=== PATIENT | female | born 1950 | race Caucasian/White ===

== ENCOUNTER 2017-11-28 01:10 | Emergency (ER) | payer OTHER, MEDICAID ==
[2017-11-28 01:16] VITALS: BMI 39.6
--- NOTE | 2017-11-28 01:47 | DR.GENAD ---
HPI - PCP Primary Care Physician: KEVIN - HPI Comment HPI Comment: NO FEVER. NO DYSURIA. - Complaint/Symptoms Chief Complaint Doctors Comments: RIGHT FLANK PAIN TIMES SEVERAL HOURS. COUGHING DUE TO COPD AND MAY HAVE CAUSE HER MUSCLES TO HURT IN RIGHT FLANK AREA. Chief Complaint:: "I HAVE BEEN COUGHING WITH THIS COPD AND I THINK I HAVE PULLED SOMETHING IN MY SIDE POINTING TO THE RIGHT MID SIDE OF BACK. O/S 2 HRS" - Nurses notes reviewed Nurses Notes Review: Yes - Source History Provided: Patient - Mode of Arrival Mode of Arrival: Ambulatory - Timing Onset of Chief Complaint: 11/27/17 Came on: Suddenly - Duration Duration: Constant Duration: Hours - Severity Severity: Moderate PMH - PMH Past Medical History: Yes Past Medical History: COPD, Depression, Dyslipidemia, GERD, Hypertension Past Medical History Comment: HOME OXYGEN Past Surgical History: Yes Surgical History: Appendectomy, Cholecystectomy, Hysterectomy - Family History History of Family Medical Conditions: Yes Family Medical History: Diabetes Mellitus, Cancer, Coronary Artery Disease, Hypertension - Social History Does patient currently use any type of tobacco product: No Have you used tobacco products in the last 12 months: No Type of Tobacco Use: None Alcohol Use: None Do you use any recreational Drugs:: No Lives With: Spouse Lives Where: Home - infectious screening Have you traveled outside the country in the last 6 months?: No Isolation: Standard ROS - Review of Systems Constitutional: negative: Chills, Diaphoresis, Fever Eyes: No Symptoms Reported ENTM: negative: Ear Pain Respiratoy: Non-Productive Cough, Short of Breath, Wheezing, Hemoptysis Cardiovascular: Edema Gastrointestinal/Abdominal: Nausea. negative: Abdominal Pain, Constipation, Diarrhea, Vomiting Genitourinary: Other (USES ). negative: Dysuria, Hematuria Neurological: No Symptoms Reported Musculoskeletal: Back Pain, Back, Other (RIGHT FLANK PAIN.) Integumentary: Change in Color Hematologic/Lymphatic: Easy Bleeding, Easy Bruising Endocrine: No Symptoms Reported All Other Systems: Reviewed and Negative PE - Vital Signs Vitals: Temperature 98.8 F Pulse Rate [Apical] 93 Pulse Rate 103 Respiratory Rate 24 Blood Pressure [Left Arm] 190/88 Blood Pressure 200/109 O2 Sat by Pulse Oximetry 93 - General Limitations: No Limitations General Appearance: Alert - Head Head Exam: Normal Inspection - Eyes Eye exam: Normal Appearance - ENT ENT Exam: Normal External Ear Exam External Ear Exam: Normal External Inspection TM/Canal Exam: Bilateral Normal Nose Exam: Normal Nose Exam Mouth Exam: Normal Inspection Throat Exam: Normal Inspection - Neck Neck Exam: Trachea Midline - Chest Chest Inspection: Symmetric Chest Wall Rise - Respiratory Respiratory Exam: Normal Lung Sounds Bilat Respiratory Exam: Bilateral Wheezing, Bilateral Rhonchi, Lower Wheezing, Lower Rhonchi - Cardiovascular Cardiovascular Exam: Regular Rate, Normal Rhythm, Normal Heart Sounds - Abdominal Exam Abdominal Exam: Normal Bowel Sounds, Soft. negative: Tenderness - Extremities Extremities Exam: Edema - Back Back Exam: (R) CVA Tenderness, Muscle Spasm, Paraspinal Tenderness - Neurologic Neurological Exam: Alert, Oriented X3 - Psychiatric Psychiatric Exam: Normal Affect, Normal Mood (PATIENT IN PAIN.) - Skin Skin Exam: Normal Color MDM - Additional Information Additional Information Obtained From: Family - Differential Diagnosis Differential Diagnosis: LEFT FLANK PAIN, UTI, KIDNEY STONE,MUSCULOSKELETAL PAIN. Course - Treatment Treatment: SEE ORDERS. PO POTASSIUM AND FLAGYL AND IM TORADOL AND NORFLEX IN ED. PAIN IMPROVING. - Education/Counseling Education/Counseling: Patient, Family, Education Educated On: Diagnosis, Needs for Follow Up ROR - Labs Reviewed Laboratory Results Reviewed?: Yes Result Diagrams: 11/28/17 01:54 11/28/17 01:54 Laboratory: WBC 8.8 X10^3/uL (3.6-10.0) 11/28/17 01:54 RBC 4.07 X10^6/uL (3.5-5.4) 11/28/17 01:54 Hgb 9.0 g/dL (12.0-16.0) L 11/28/17 01:54 Hct 28.7 % (36.0-47.0) L 11/28/17 01:54 MCV 70.5 fL (80.0-100.0) L 11/28/17 01:54 MCH 22.1 pg (27.0-34.0) L 11/28/17 01:54 MCHC 31.4 g/dL (33.0-35.0) L 11/28/17 01:54 RDW 16.0 % (11.6-16.5) 11/28/17 01:54 Plt Count 346 X10^3/uL (150.0-450.0) 11/28/17 01:54 Plt Count Comment Adequate (ADEQUATE) 11/28/17 01:54 MPV 7.5 fL (7.4-11.0) 11/28/17 01:54 Neut % (Auto) 71.7 % (42.0-75.0) 11/28/17 01:54 Lymph % (Auto) 17.7 % (21.0-51.0) L 11/28/17 01:54 [place] % (Auto) 7.6 % (0.0-13.0) 11/28/17 01:54 Eos % (Auto) 1.7 % (0.9-2.9) 11/28/17 01:54 Baso % (Auto) 1.3 % (0.2-1.0) H 11/28/17 01:54 Neut # (Auto) 6.3 x10^3/uL (2.2-4.8) H 11/28/17 01:54 Lymph # (Auto) 1.6 X10^3/uL (1.3-2.9) 11/28/17 01:54 [place] # (Auto) 0.7 x10^3/uL (0.3-0.8) 11/28/17 01:54 Eos # (Auto) 0.2 x10^3/uL (0.0-0.2) 11/28/17 01:54 Baso # (Auto) 0.1 X10^3/uL (0.0-0.1) 11/28/17 01:54 Absolute Nucleated RBC 0.2 /100WBC 11/28/17 01:54 Plt Morphology Comment Normal (NORMAL) 11/28/17 01:54 RBC Morphology Abnormal (NORMAL) A 11/28/17 01:54 Hypochromasia 1+ A 11/28/17 01:54 Sodium 139 mmol/L (136-145) 11/28/17 01:54 Corrected Sodium TNP 11/28/17 01:54 Potassium 3.1 mmol/L (3.5-5.1) L 11/28/17 01:54 Chloride 98 mmol/L (98-107) 11/28/17 01:54 Carbon Dioxide 36.8 mmol/L (21-32) H 11/28/17 01:54 BUN 20 mg/dL (7-18) H 11/28/17 01:54 Creatinine 0.85 mg/dL (0.55-1.02) 11/28/17 01:54 Est GFR (MDRD) Af Amer > 60 (>60) 11/28/17 01:54 Est GFR (MDRD) Non-Af > 60 (>60) 11/28/17 01:54 Glucose 104 mg/dL (65-99) H 11/28/17 01:54 Calcium 8.4 mg/dL (8.5-10.1) L 11/28/17 01:54 Corrected Calcium 9.0 mg/dL (8.5-10.1) 11/28/17 01:54 Total Bilirubin 0.20 mg/dL (0.2-1.0) 11/28/17 01:54 AST 11 Units/L (15-37) L 11/28/17 01:54 ALT 19 Units/L (12-78) 11/28/17 01:54 Alkaline Phosphatase 115 Units/L (46-116) 11/28/17 01:54 Total Protein 7.6 g/dL (6.4-8.2) 11/28/17 01:54 Albumin 3.3 g/dL (3.4-5.0) L 11/28/17 01:54 Globulin 4.3 g/dL (2.5-4.5) 11/28/17 01:54 Albumin/Globulin Ratio 0.8 Ratio (1.1-2.1) L 11/28/17 01:54 Amylase 31 Units/L (25-115) 11/28/17 01:54 Lipase 139 Units/L (73-393) 11/28/17 01:54 Specimen Type Clean catch urine 11/28/17 01:32 Urine Color Pale yellow (YELLOW) 11/28/17 01:32 Urine Appearance Clear (CLEAR) 11/28/17 01:32 Urine pH 8.0 (5.0 - 8.0) 11/28/17 01:32 Ur Specific [place] 1.010 (1.000-1.030) 11/28/17 01:32 Urine Protein Negative (NEGATIVE) 11/28/17 01:32 Urine Glucose (UA) Negative (NEGATIVE) 11/28/17 01:32 Urine Ketones Negative (NEGATIVE) 11/28/17 01:32 Urine Occult Blood Negative (NEGATIVE) 11/28/17 01:32 Urine Nitrite Negative (NEGATIVE) 11/28/17 01:32 Urine Bilirubin Negative (NEGATIVE) 11/28/17 01:32 Urine Urobilinogen Normal (NORMAL) 11/28/17 01:32 Ur Leukocyte Esterase 2+ (NEGATIVE) 11/28/17 01:32 Urine RBC None seen /HPF (NONE SEEN) 11/28/17 01:32 Urine WBC 0-2 /HPF (NONE SEEN) 11/28/17 01:32 Ur Squamous Epith Cells Moderate /HPF (NEGATIVE) 11/28/17 01:32 Urine Bacteria Trace /HPF (NEGATIVE) 11/28/17 01:32 Urine Trichomonas Moderate /HPF (NEGATIVE) 11/28/17 01:32 Ur Culture Indicated? No/not indicated 11/28/17 01:32 - XRAY XRAY Interpreted by: Radiologist XRAY Findings: REPO - Diagnosis Discharge Problem: Flank pain, Trichomoniasis - Discharge Plan Condition: Stable - Follow ups/Referrals Follow ups/Referrals: ADALGISA BROWN [Primary Care Provider] - 1 day - Instructions Instructions: Flank Pain, Adult, [id number], Trichomoniasis Additional Instructions: RETURN TO ED IF WORSE.
[2017-11-28 02:13] LABS: BASOPHILS # (AUTO) 0.1 X10^3/uL (0.0-0.1); BASOPHILS % (AUTO) 1.3 % (0.2-1.0); EOSINOPHILS # (AUTO) 0.2 x10^3/uL (0.0-0.2); EOSINOPHILS % (AUTO) 1.7 % (0.9-2.9); HEMATOCRIT 28.7 % (36.0-47.0); LYMPHOCYTES # (AUTO) 1.6 X10^3/uL (1.3-2.9); LYMPHOCYTES % (AUTO) 17.7 % (21.0-51.0); MEAN CORPUSCULAR HEMOGLOBIN 22.1 pg (27.0-34.0); MEAN CORPUSCULAR HGB CONC 31.4 g/dL (33.0-35.0); MEAN CORPUSCULAR VOLUME 70.5 fL (80.0-100.0); MEAN PLATELET VOLUME 7.5 fL (7.4-11.0); MONOCYTES # (AUTO) 0.7 x10^3/uL (0.3-0.8); MONOCYTES % (AUTO) 7.6 % (0.0-13.0); NEUTROPHILS # (AUTO) 6.3 x10^3/uL (2.2-4.8); NEUTROPHILS % (AUTO) 71.7 % (42.0-75.0); PLATELET COUNT 346 X10^3/uL (150.0-450.0); RED BLOOD COUNT 4.07 X10^6/uL (3.5-5.4); WHITE BLOOD COUNT 8.8 X10^3/uL (3.6-10.0)
[2017-11-28 02:21] LABS: ALANINE AMINOTRANSFERASE 19 Units/L (12-78); ALBUMIN 3.3 g/dL (3.4-5.0); ALKALINE PHOSPHATASE 115 Units/L (46-116); AMYLASE 31 Units/L (25-115); ASPARTATE AMINO TRANSFERASE 11 Units/L (15-37); BLOOD UREA NITROGEN 20 mg/dL (7-18); CALCIUM 8.4 mg/dL (8.5-10.1); CARBON DIOXIDE 36.8 mmol/L (21-32); CHLORIDE 98 mmol/L (98-107); CREATININE 0.85 mg/dL (0.55-1.02); LIPASE 139 Units/L (73-393); SODIUM 139 mmol/L (136-145); TOTAL PROTEIN 7.6 g/dL (6.4-8.2); eGFR BLACK RACES > 60 (>60); eGFR NON BLACK RACES > 60 (>60)
[2017-11-28 02:22] LABS: BILIRUBIN,URINE NEGATIVE (NEGATIVE); BLOOD/HEMOGLOBIN,URINE NEGATIVE (NEGATIVE); GLUCOSE, URINE NEGATIVE (NEGATIVE); KETONES,URINE NEGATIVE (NEGATIVE); LEUKOCYTE ESTERASE ,URINE 2+ (NEGATIVE); NITRITES,URINE NEGATIVE (NEGATIVE); PROTEIN,URINE NEGATIVE (NEGATIVE); UROBILINOGEN,URINE NORMAL (NORMAL)
--- NOTE | 2017-11-28 02:23 | RAD ---
Chest AP portable Indication: Cough and mid posterior back/flank pain Findings: There is no pneumothorax, effusion or consolidation. Heart size is normal. Monitoring leads obscure detail. Impression: No acute chest process Reported By:
[2017-11-28 02:30] LABS: APPEARANCE,URINE CLEAR (CLEAR); COLOR,URINE PALE YELLOW (YELLOW)
[2017-11-28 02:30] LABS: HYPOCHROMASIA 1+; PLATELET MORPHOLOGY COMMENT NORMAL (NORMAL)
--- NOTE | 2017-11-28 02:30 | CT ---
CT abdomen and pelvis without contrast Indication: Right mid-posterior by plain and flank pain for 2 hours. Technique: Helical images through the abdomen and pelvis without contrast. Coronal and sagittal refor mats provided. Findings: Limited images through the lower chest shows no acute abnormality. Review of bone windows s hows pars defects at L5 and spine degenerative change without destructive osseous lesion. Abdomen: The liver, the spleen and adrenal glands are normal. The gallbladder is absent. The kidneys are normal without hydroureteronephrosis. Vascular calcifications are noted. The stomach and small katalina wel are normal. Colon is normal. The appendix is absent. Left renal cyst noted. Pelvis: The urinary bladder and rectum are normal. Uterus is absent. No adnexal region lesions seen. Impression: 1. No hydroureteronephrosis or stone. 2. Left renal cyst 3. 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
[2017-11-28 02:31] LABS: BACTERIA,URINE TRACE /HPF (NEGATIVE); RBC,URINE NONE SEEN /HPF (NONE SEEN); SQUAMOUS EPITHELIAL CELL,UR MODERATE /HPF (NEGATIVE); TRICHOMONAS,URINE MODERATE /HPF (NEGATIVE)
[2017-11-28] MEDS ORDERED: TORADOL 60 MG VIAL IM ONE (02:36)
[2017-11-28] MEDS ORDERED: NORFLEX INJ IM ONE (02:37)
[2017-11-28] MEDS ORDERED: TORADOL 60 MG VIAL ONE (02:38)
[2017-11-28] MEDS ORDERED: NORFLEX INJ ONE (02:39)
[2017-11-28] MEDS ORDERED: FLAGYL TAB 500 MG PO SCH (03:00)
[2017-11-28 03:02] VITALS: BP 190/88
[2017-11-28] MEDS ORDERED: FLAGYL TAB 250 MG PO ONE (03:07)
[2017-11-28] MEDS ORDERED: MICRO K EXTEN CAP 10 MEQ PO ONE ×2 (03:08→03:09)
== END 2017-11-28 03:21 | disposition home or self-care (01) ==
LOC: ER 01:10
DX: R10.84 Generalized abdominal pain (principal); A59.9 Trichomoniasis, unspecified; R94.31 Abnormal electrocardiogram [ECG] [EKG]
CPT/HCPCS: 36415; 71045; 74176; 80053; 81001; 82150; 83690; 85025; 93005; 93010; 96372; 99283; 99284; J1885; J2360

== ENCOUNTER 2018-09-19 12:45 | Observation (INO) ==
[2018-09-19 13:03] VITALS: BMI 39.1
[2018-09-19] MEDS ORDERED: DUONEB 0.5 MG/3 MG NEB ONE (13:39)
[2018-09-19] MEDS ORDERED: DUONEB 0.5 MG/3 MG ONE (13:40)
[2018-09-19 13:59] LABS: BASOPHILS # (AUTO) 0.1 X10^3/uL (0.0-0.1); BASOPHILS % (AUTO) 1.2 % (0.2-1.0); EOSINOPHILS # (AUTO) 0.2 x10^3/uL (0.0-0.2); EOSINOPHILS % (AUTO) 2.4 % (0.9-2.9); HEMATOCRIT 25.4 % (36.0-47.0); HEMOGLOBIN 7.5 g/dL (12.0-16.0); LYMPHOCYTES # (AUTO) 1.3 X10^3/uL (1.3-2.9); LYMPHOCYTES % (AUTO) 21.4 % (21.0-51.0); MEAN CORPUSCULAR HEMOGLOBIN 18.9 pg (27.0-34.0); MEAN CORPUSCULAR HGB CONC 29.5 g/dL (33.0-35.0); MONOCYTES # (AUTO) 0.4 x10^3/uL (0.3-0.8); MONOCYTES % (AUTO) 6.1 % (0.0-13.0); NEUTROPHILS # (AUTO) 4.3 x10^3/uL (2.2-4.8); NEUTROPHILS % (AUTO) 68.9 % (42.0-75.0); PLATELET COUNT 267 X10^3/uL (150.0-450.0); RED BLOOD COUNT 3.96 X10^6/uL (3.5-5.4); RED CELL DISTRIBUTION WIDTH 20.2 % (11.6-16.5); WHITE BLOOD COUNT 6.2 X10^3/uL (3.6-10.0)
--- NOTE | 2018-09-19 14:03 | RAD ---
History: Shortness of breath Exam: Chest x-ray Comparison: 11/28/2017 Technique: A portable AP chest was obtained Findings: The heart is mildly enlarged and more prominent. The pulmonary vessels are slightly engorged centrally more prominent . The lungs are mildly hyperinflated with mild chronic interstitial changes throughout. No obvious consolidation or effusion is seen. The bones are intact. IMPRESSION: Mild cardiomegaly and mild central pulmonary congestion which is more prominent. Reported By:
[2018-09-19 14:14] LABS: BLOOD UREA NITROGEN 13 mg/dL (7-18); CALCIUM 8.9 mg/dL (8.5-10.1); CARBON DIOXIDE 32.5 mmol/L (21-32); CHLORIDE 103 mmol/L (98-107); COR NA(FOR HYPERGLY) 143 mmol/L (136-145); CREATININE 0.81 mg/dL (0.55-1.02); SODIUM 142 mmol/L (136-145); TROPONIN I < 0.02 ng/mL (0-1.5); eGFR NON BLACK RACES > 60 (>60)
[2018-09-19 14:18] LABS: ANISOCYTOSIS 1+; HYPOCHROMASIA 3+; MICROCYTOSIS 2+; PLATELET MORPHOLOGY COMMENT NORMAL (NORMAL)
[2018-09-19 14:19] LABS: ALANINE AMINOTRANSFERASE 24 Units/L (12-78); ALBUMIN 3.2 g/dL (3.4-5.0); ALKALINE PHOSPHATASE 125 Units/L (46-116); ASPARTATE AMINO TRANSFERASE 12 Units/L (15-37); CKMB % 1.1 % (<4); COR CA(FOR HYPOALB) 9.5 mg/dL (8.5-10.1); CREATINE KINASE 93 Units/L (26-192); TOTAL PROTEIN 7.1 g/dL (6.4-8.2)
[2018-09-19 14:25] LABS: B-TYPE NATRIURETIC PEPTIDE 132 pg/mL (0-79)
[2018-09-19] MEDS ORDERED: LASIX IVP ONE ×2 (14:29→14:52)
--- NOTE | 2018-09-19 14:33 | DR.SOBA ---
HPI Time Seen Time Seen by Provider: 09/19/18 14:12 Primary Care Physician Primary Care Physician: DENNISE DANIELS Complaints Chief Complaint:: PT C/O HAVING SOB FOR A FEW DAYS AND SHE WENT TO HER PCP TODAY AND SHE WAS TOLD THAT THEY COULD NOT HEAR ANY AIR MOVING AND FOR HER TO COME TO THE ER , XRAY PERFORMED AND THEY WERE TOLD IT LOOKED GOOD AND SHE WAS OFFERED STERIODS , PT C/O NOT BEING ABLE TO SLEEP WHEN SHE LAYS DOWN ,,BR Self Treatment fo Chief Complaint: PT IS NOT IN ANY DISTRESS, Source History Provided: Patient Mode of Arrival Mode of Arrival: Ambulatory Timing Onset of Chief Complaint: 09/16/18 PMH PMH Past Medical History: Yes Past Medical History: COPD, Depression, Dyslipidemia, GERD and Hypertension Past Surgical History: Yes Surgical History: Appendectomy, Cholecystectomy and Hysterectomy Family History History of Family Medical Conditions: Yes Family Medical History: Diabetes Mellitus, Cancer, Coronary Artery Disease and Hypertension Social History Does patient currently use any type of tobacco product: No Have you used tobacco products in the last 12 months: No Type of Tobacco Use: None Does any household member use tobacco: No Alcohol Use: None Do you use any recreational Drugs:: No Lives With: Family Lives Where: Home infectious screening In the last 2 months have you had wt loss of >10#?: NO Have you had fever, night sweats or hemotysis?: No Have you traveled outside the country in the last 6 months?: No Isolation: Standard PE Vital Signs Vitals: Temperature 97.0 F Pulse Rate 72 Respiratory Rate 20 Blood Pressure [Left Arm] 190/88 Blood Pressure 140/76 O2 Sat by Pulse Oximetry 96 ROR Labs Reviewed Result Diagrams: 09/19/18 13:50 09/19/18 13:50 Laboratory: WBC 6.2 X10^3/uL (3.6-10.0) 09/19/18 13:50 RBC 3.96 X10^6/uL (3.5-5.4) 09/19/18 13:50 Hgb 7.5 g/dL (12.0-16.0) L 09/19/18 13:50 Hct 25.4 % (36.0-47.0) L 09/19/18 13:50 MCV 64.0 fL (80.0-100.0) L 09/19/18 13:50 MCH 18.9 pg (27.0-34.0) L 09/19/18 13:50 MCHC 29.5 g/dL (33.0-35.0) L 09/19/18 13:50 RDW 20.2 % (11.6-16.5) H 09/19/18 13:50 Plt Count 267 X10^3/uL (150.0-450.0) 09/19/18 13:50 Plt Count Comment Adequate (ADEQUATE) 09/19/18 13:50 MPV 7.0 fL (7.4-11.0) L 09/19/18 13:50 Neut % (Auto) 68.9 % (42.0-75.0) 09/19/18 13:50 Lymph % (Auto) 21.4 % (21.0-51.0) 09/19/18 13:50 [place] % (Auto) 6.1 % (0.0-13.0) 09/19/18 13:50 Eos % (Auto) 2.4 % (0.9-2.9) 09/19/18 13:50 Baso % (Auto) 1.2 % (0.2-1.0) H 09/19/18 13:50 Neut # (Auto) 4.3 x10^3/uL (2.2-4.8) 09/19/18 13:50 Lymph # (Auto) 1.3 X10^3/uL (1.3-2.9) 09/19/18 13:50 [place] # (Auto) 0.4 x10^3/uL (0.3-0.8) 09/19/18 13:50 Eos # (Auto) 0.2 x10^3/uL (0.0-0.2) 09/19/18 13:50 Baso # (Auto) 0.1 X10^3/uL (0.0-0.1) 09/19/18 13:50 Absolute Nucleated RBC 0.1 /100WBC 09/19/18 13:50 Plt Morphology Comment Normal (NORMAL) 09/19/18 13:50 RBC Morphology Abnormal (NORMAL) A 09/19/18 13:50 Hypochromasia 3+ A 09/19/18 13:50 Anisocytosis 1+ A 09/19/18 13:50 Microcytosis 2+ A 09/19/18 13:50 Sodium 142 mmol/L (136-145) 09/19/18 13:50 Corrected Sodium 143 mmol/L (136-145) 09/19/18 13:50 Potassium 3.4 mmol/L (3.5-5.1) L 09/19/18 13:50 Chloride 103 mmol/L (98-107) 09/19/18 13:50 Carbon Dioxide 32.5 mmol/L (21-32) H 09/19/18 13:50 BUN 13 mg/dL (7-18) 09/19/18 13:50 Creatinine 0.81 mg/dL (0.55-1.02) 09/19/18 13:50 Est GFR (MDRD) Af Amer > 60 (>60) 09/19/18 13:50 Est GFR (MDRD) Non-Af > 60 (>60) 09/19/18 13:50 Glucose 133 mg/dL (65-99) H 09/19/18 13:50 Calcium 8.9 mg/dL (8.5-10.1) 09/19/18 13:50 Corrected Calcium 9.5 mg/dL (8.5-10.1) 09/19/18 13:50 Total Bilirubin 0.30 mg/dL (0.2-1.0) 09/19/18 13:50 AST 12 Units/L (15-37) L 09/19/18 13:50 ALT 24 Units/L (12-78) 09/19/18 13:50 Alkaline Phosphatase 125 Units/L (46-116) H 09/19/18 13:50 Creatine Kinase 93 Units/L (26-192) 09/19/18 13:50 CK-MB (CK-2) 1.0 ng/mL (0-4.0) 09/19/18 13:50 CK/CKMB % Calc 1.1 % (<4) 09/19/18 13:50 Troponin I < 0.02 ng/mL (0-1.5) 09/19/18 13:50 B-Natriuretic Peptide 132 pg/mL (0-79) H 09/19/18 13:50 Total Protein 7.1 g/dL (6.4-8.2) 09/19/18 13:50 Albumin 3.2 g/dL (3.4-5.0) L 09/19/18 13:50 Globulin 3.9 g/dL (2.5-4.5) 09/19/18 13:50 Albumin/Globulin Ratio 0.8 Ratio (1.1-2.1) L 09/19/18 13:50
[2018-09-19] MEDS ORDERED: POTASSIUM CHL 40 MEQ/NS 0.45% 500 ML IV PRN (17:25)
[2018-09-19] MEDS ORDERED: KLOR-CON PO PRN (17:25)
[2018-09-19] MEDS ORDERED: MICRO K EXTEN CAP 10 MEQ PO PRN (17:25)
[2018-09-19] MEDS ORDERED: K-RIDER 10 MEQ/NS 100 ML 10 MEQ/100 ML BAG IV PRN (17:25)
[2018-09-19] MEDS ORDERED: POTASSIUM CHLORIDE LIQ 20 MEQ UDC PO PRN (17:25)
[2018-09-19] MEDS ORDERED: POTASSIUM CHL 60 MEQ/NS 0.45% 500 ML IV PRN (17:25)
[2018-09-19] MEDS: EFFEXOR TAB 75 MG (BID DOSING) PO SCH (17:42)
[2018-09-19] MEDS: ROCEPHIN VIAL 1 GRAM IVP SCH (17:50)
[2018-09-19] MEDS: K-DUR TAB 20 MEQ PO PRN (18:04)
[2018-09-19] MEDS ORDERED: PULMICORT NEB TX 0.5 MG NEB ONE (18:56)
[2018-09-19] MEDS: PROVENTIL NEB TX 0.083% 2.5MG/ 3ML NEB SCH (19:06)
[2018-09-19] MEDS: PULMICORT NEB TX 0.5 MG NEB SCH ×2 (19:07→21:34)
[2018-09-19 19:14] LABS: ABG HCO3 36.8 mmol/L (22-26)
[2018-09-19] MEDS ORDERED: NS 250 ML IV 250 ML IV SCH (19:30)
[2018-09-19 19:33] LABS: BILIRUBIN,URINE NEGATIVE (NEGATIVE); BLOOD/HEMOGLOBIN,URINE NEGATIVE (NEGATIVE); COLOR,URINE YELLOW (YELLOW); GLUCOSE, URINE NEGATIVE (NEGATIVE); KETONES,URINE NEGATIVE (NEGATIVE); LEUKOCYTE ESTERASE ,URINE NEGATIVE (NEGATIVE); NITRITES,URINE NEGATIVE (NEGATIVE); PROTEIN,URINE NEGATIVE (NEGATIVE); UROBILINOGEN,URINE 2+ (NORMAL)
[2018-09-19 19:34] LABS: APPEARANCE,URINE CLEAR (CLEAR)
[2018-09-19 19:39] LABS: BACTERIA,URINE TRACE /HPF (NEGATIVE); RBC,URINE 0-2 /HPF (NONE SEEN); SQUAMOUS EPITHELIAL CELL,UR FEW /HPF (NEGATIVE)
[2018-09-19 20:57] LABS: CKMB % 1.2 % (<4); CREATINE KINASE 90 Units/L (26-192); CREATINE KINASE MB 1.1 ng/mL (0-4.0); TROPONIN I < 0.02 ng/mL (0-1.5)
[2018-09-19] MEDS: K-DUR TAB 20 MEQ PO SCH (21:28)
[2018-09-19] MEDS: SINGULAIR TAB 10 MG PO SCH (21:28)
[2018-09-19] MEDS: LASIX IVP SCH (21:29)
[2018-09-19] MEDS: NexIUM PO SCH (21:29)
[2018-09-19] MEDS ORDERED: ATARAX TAB 25 MG PO PRN (21:40)
[2018-09-19] MEDS ORDERED: ATARAX TAB 25 MG PO SCH (22:00)
[2018-09-20] MEDS: PROVENTIL NEB TX 0.083% 2.5MG/ 3ML NEB SCH ×4 (01:00→17:07)
[2018-09-20 02:13] LABS: CKMB % 1.2 % (<4); CREATINE KINASE 85 Units/L (26-192); TROPONIN I < 0.02 ng/mL (0-1.5)
[2018-09-20 05:29] LABS: BASOPHILS # (AUTO) 0.1 X10^3/uL (0.0-0.1); EOSINOPHILS # (AUTO) 0.2 x10^3/uL (0.0-0.2); EOSINOPHILS % (AUTO) 2.3 % (0.9-2.9); HEMATOCRIT 29.7 % (36.0-47.0); HEMOGLOBIN 9.1 g/dL (12.0-16.0); LYMPHOCYTES # (AUTO) 1.4 X10^3/uL (1.3-2.9); LYMPHOCYTES % (AUTO) 19.2 % (21.0-51.0); MEAN CORPUSCULAR HEMOGLOBIN 21.3 pg (27.0-34.0); MEAN CORPUSCULAR HGB CONC 30.8 g/dL (33.0-35.0); MEAN CORPUSCULAR VOLUME 69.1 fL (80.0-100.0); MEAN PLATELET VOLUME 7.6 fL (7.4-11.0); MONOCYTES # (AUTO) 0.5 x10^3/uL (0.3-0.8); MONOCYTES % (AUTO) 6.4 % (0.0-13.0); NEUTROPHILS # (AUTO) 5.2 x10^3/uL (2.2-4.8); NEUTROPHILS % (AUTO) 71.1 % (42.0-75.0); PLATELET COUNT 251 X10^3/uL (150.0-450.0); RED CELL DISTRIBUTION WIDTH 24.6 % (11.6-16.5); WHITE BLOOD COUNT 7.3 X10^3/uL (3.6-10.0)
[2018-09-20 05:40] LABS: ALANINE AMINOTRANSFERASE 22 Units/L (12-78); ALBUMIN 3.2 g/dL (3.4-5.0); ALKALINE PHOSPHATASE 117 Units/L (46-116); ASPARTATE AMINO TRANSFERASE 11 Units/L (15-37); BLOOD UREA NITROGEN 12 mg/dL (7-18); CARBON DIOXIDE 36.4 mmol/L (21-32); CHLORIDE 101 mmol/L (98-107); COR CA(FOR HYPOALB) 9.6 mg/dL (8.5-10.1); CREATININE 0.75 mg/dL (0.55-1.02); MAGNESIUM 2.2 mg/dL (1.7-2.9); SODIUM 142 mmol/L (136-145); eGFR NON BLACK RACES > 60 (>60)
--- NOTE | 2018-09-20 05:44 | RAD ---
History: Shortness of breath Study: Portable AP chest Comparison: Yesterday Findings: There is vascular congestion improved from yesterday. The heart size improved as well. There is no obvious effusion. No bony abnormality is demonstrated. Impression: Resolving vascular congestion and improved heart size Reported By:
[2018-09-20 06:01] LABS: ANISOCYTOSIS 3+; HYPOCHROMASIA 2+; MICROCYTOSIS 1+; PLATELET MORPHOLOGY COMMENT NORMAL (NORMAL)
[2018-09-20] MEDS: K-DUR TAB 20 MEQ PO PRN (06:31)
[2018-09-20] MEDS: PULMICORT NEB TX 0.5 MG NEB SCH ×2 (08:03→20:53)
[2018-09-20] MEDS: PROCARDIA XL PO SCH (08:22)
[2018-09-20] MEDS: LASIX IVP SCH ×2 (08:22→20:15)
[2018-09-20] MEDS: ROCEPHIN VIAL 1 GRAM IVP SCH (08:22)
[2018-09-20] MEDS: ZAROXOYLN PO SCH (08:23)
[2018-09-20] MEDS: NexIUM PO SCH ×2 (08:23→20:15)
[2018-09-20] MEDS: TOPROL XL PO SCH (08:23)
[2018-09-20] MEDS: K-DUR TAB 20 MEQ PO SCH ×2 (08:23→20:15)
--- NOTE | 2018-09-20 08:53 | DR.H&P ---
H&P - History & Physical for Day of: H&P Date: 09/19/18 - Chief Complaint Chief Complaint: SOB, WEAKNESS - History of Present Illness History of Present Illness: IS A 68 YEAR OLD PATIENT OF WHO PRESENTED TO THE EMERGENCY ROOM WITH COMPLAINTS OF SHORTNESS OF BREATH FOR THE PAST FEW DAYS. SHE REPORTS BEING SEEN BY HER PRIMARY CARE PHYSICIAN AND GIVEN STEROIDS. SHE DENIES IMPROVEMENT SINCE SHE WAS GIVEN THE STEROIDS. SHE REPORTS THAT SHORTNESS OF BREATH IS WORSE WHEN SHE LIES DOWN. SHE IS NOTED WITH DIMINISHED LUNG SOUNDS ON AUSCULTATION. ON ARRIVAL, VITALS WERE 97.0-72-20-96%-140/76. LABS WERE OBTAINED. ABNORMAL LAB VALUES INCLUDE THE FOLLOWING: HGB 7.5, HCT 25.4, POTASSIUM 3.4, CARBON DIOXIDE 32.5, GLUCOSE 133, AST 12, ALK PHOS 125, BNP 132, ALBUMIN 3.2, IRON 15, TRANSFERRIN 401, FERRITIN 7. ABG REVEALED: PH: 7.450, PC02 53.0, P02 58.0, HC03 36.8, 02 SATURATION 91.0, BASE EXCESS 11.0. CHEST XRAY REVEALED: Mild cardiomegaly and mild central pulmonary congestion which is more prominent. EKG REVEALED: NORMAL SINUS RHYTHM WITH HR 62. SHE WAS GIVEN A DUONEB X 1 AND LASIX 40MG IV X 1 DOSE IN THE ER WITHOUT IMPROVEMENT IN SYMPTOMS. SHE WAS ADMITTED FOR FURTHER EVALUATION AND TREATMENT OF CHF, ANEMIA, AND SOB. SHE WAS TYPED AND SCREENED AND WE PLANNED TRANSFUSE WITH 2 UNITS OF PACKED RED BLOOD CELLS. SHE WAS ALSO STARTED ON RESPIRATORY TREATMENTS, SUPPLEMENTAL OXYGEN, AND ROCEPHIN 1GM IV DAILY. WE PLAN TO FOLLOW UP WITH AM LABS AND CONTINUE TO MONITOR. - Past Medical History Past Medical History: Hypertension, Dyslipidemia, Depression, COPD, GERD - Past Surgical History Surgical History: Appendectomy, Cholecystectomy, Hysterectomy - Family History Family Medical History: Diabetes Mellitus, Cancer, Coronary Artery Disease, Hypertension - Social History Does patient currently use any type of tobacco product: No (Quit 3 years ago) Have you used tobacco products in the last 12 months: No Type of Tobacco Use: None Does any household member use tobacco: No Alcohol Use: None Drug Use: None - Medications Home Medications: No Known Drug Allergies Allergy (Verified 09/19/18 12:58) CONTINUE taking the following medications aspirin [Aspirin Low Dose] 81 mg PO DAILY 09/19/18 [History] [id number] [Trelegy Ellipta] 1 inh INHALATION DAILY 09/19/18 [History] furosemide 40 mg PO BID 09/19/18 [History] ipratropium-albuterol [Combivent Respimat] 1 inh INHALATION DAILY 09/19/18 [History] levothyroxine 50 mcg PO 0700 09/19/18 [History] metolazone 2.5 mg PO DAILY 09/19/18 [History] nifedipine 30 mg PO DAILY 09/19/18 [History] nitroglycerin 0.4 mg SUBLINGUAL .Q5MIN PRN 09/19/18 [History] potassium chloride 20 meq PO BID 09/19/18 [History] venlafaxine 75 mg PO DAILY 09/19/18 [History] - Physical Exam Vital Signs: Temperature 98 F Pulse Rate [Right Brachial] 61 Pulse Rate 61 Respiratory Rate 18 Blood Pressure [Right Arm] 151/88 Blood Pressure [Left Arm] 190/88 Blood Pressure 140/76 O2 Sat by Pulse Oximetry 96 - Allergies Allergies/Adverse Reactions: Allergies Allergy/AdvReac Type Severity Reaction Status Date / Time No Known Drug Allergies Allergy Verified 09/19/18 12:58
[2018-09-20] MEDS ORDERED: DUONEB 0.5 MG/3 MG NEB SCH (09:00)
[2018-09-20] MEDS ORDERED: PATIENT'S HOME MEDICATION (Fluticasone-Umeclidin-Vilanter [Fluticasone-Umeclidin-Vilanter] IN SCH (09:00)
[2018-09-20] MEDS: Atrovent NEB TX 0.02% NEB SCH (11:29)
[2018-09-20] MEDS ORDERED: SYNTHROID 50 mcg TAB PO SCH (16:30)
[2018-09-20] MEDS: EFFEXOR TAB 75 MG (BID DOSING) PO SCH (17:41)
[2018-09-20] MEDS ORDERED: Atrovent NEB TX 0.02% NEB PRN (19:58)
[2018-09-20] MEDS: SINGULAIR TAB 10 MG PO SCH (20:15)
[2018-09-21] MEDS: PROVENTIL NEB TX 0.083% 2.5MG/ 3ML NEB SCH ×3 (00:29→12:03)
--- NOTE | 2018-09-21 05:14 | RAD ---
Examination: Portable AP chest History: SOB Comparison reference 09/20/2018 Findings: Heart size now normal. The lungs are essentially clear. There is no definite edema, pneumonia or pleural effusion. Impression: No acute chest abnormality demonstrated. Reported By:
[2018-09-21 05:24] LABS: BASOPHILS # (AUTO) 0.1 X10^3/uL (0.0-0.1); BASOPHILS % (AUTO) 0.8 % (0.2-1.0); EOSINOPHILS # (AUTO) 0.2 x10^3/uL (0.0-0.2); EOSINOPHILS % (AUTO) 2.5 % (0.9-2.9); HEMATOCRIT 33.3 % (36.0-47.0); HEMOGLOBIN 10.2 g/dL (12.0-16.0); LYMPHOCYTES # (AUTO) 1.3 X10^3/uL (1.3-2.9); LYMPHOCYTES % (AUTO) 17.4 % (21.0-51.0); MEAN CORPUSCULAR HEMOGLOBIN 21.2 pg (27.0-34.0); MEAN CORPUSCULAR HGB CONC 30.6 g/dL (33.0-35.0); MEAN CORPUSCULAR VOLUME 69.3 fL (80.0-100.0); MEAN PLATELET VOLUME 8.6 fL (7.4-11.0); MONOCYTES # (AUTO) 0.5 x10^3/uL (0.3-0.8); NEUTROPHILS # (AUTO) 5.4 x10^3/uL (2.2-4.8); NEUTROPHILS % (AUTO) 72.3 % (42.0-75.0); PLATELET COUNT 265 X10^3/uL (150.0-450.0); RED BLOOD COUNT 4.81 X10^6/uL (3.5-5.4); RED CELL DISTRIBUTION WIDTH 25.4 % (11.6-16.5); WHITE BLOOD COUNT 7.5 X10^3/uL (3.6-10.0)
[2018-09-21 05:39] LABS: ALANINE AMINOTRANSFERASE 21 Units/L (12-78); ALBUMIN 3.3 g/dL (3.4-5.0); ALKALINE PHOSPHATASE 123 Units/L (46-116); ASPARTATE AMINO TRANSFERASE 13 Units/L (15-37); BLOOD UREA NITROGEN 11 mg/dL (7-18); CALCIUM 9.4 mg/dL (8.5-10.1); CARBON DIOXIDE 37.7 mmol/L (21-32); CHLORIDE 96 mmol/L (98-107); COR NA(FOR HYPERGLY) 139 mmol/L (136-145); CREATININE 0.84 mg/dL (0.55-1.02); SODIUM 138 mmol/L (136-145); TOTAL PROTEIN 7.3 g/dL (6.4-8.2); eGFR NON BLACK RACES > 60 (>60)
[2018-09-21 05:58] LABS: ANISOCYTOSIS 3+; HYPOCHROMASIA 2+; MICROCYTOSIS 1+; PLATELET MORPHOLOGY COMMENT NORMAL (NORMAL)
[2018-09-21] MEDS: K-DUR TAB 20 MEQ PO PRN (06:01)
[2018-09-21] MEDS: LASIX IVP SCH (08:22)
[2018-09-21] MEDS: PROCARDIA XL PO SCH (08:22)
[2018-09-21] MEDS: ROCEPHIN VIAL 1 GRAM IVP SCH (08:22)
[2018-09-21] MEDS: TOPROL XL PO SCH (08:23)
[2018-09-21] MEDS: ZAROXOYLN PO SCH (08:23)
[2018-09-21] MEDS: NexIUM PO SCH (08:23)
[2018-09-21] MEDS: K-DUR TAB 20 MEQ PO SCH (08:23)
[2018-09-21] MEDS: Atrovent NEB TX 0.02% NEB SCH (08:41)
[2018-09-21] MEDS: PULMICORT NEB TX 0.5 MG NEB SCH (08:41)
[2018-09-21] MEDS ORDERED: ASPIRIN EC 81 MG PO SCH (09:00)
[2018-09-21 12:20] VITALS: BP 145/78
== END 2018-09-21 12:40 | disposition home or self-care (01) ==
LOC: ER 12:56 → MED/SURG 12:56
PROVIDERS: ADMIT Internal Medicine; ATTEND Internal Medicine
DX: E78.2 Mixed hyperlipidemia; K21.9 Gastro-esophageal reflux disease without esophagitis; R06.02 Shortness of breath; I50.9 Heart failure, unspecified; D64.89 Other specified anemias; Z79.899 Other long term (current) drug therapy; I11.0 Hypertensive heart disease with heart failure; Z79.01 Long term (current) use of anticoagulants
CPT/HCPCS: 36415; 36430; 36600; 71010; 71045; 80053; 81001; 82550; 82553; 82607; 82728; 82746; 82803; 83540; 83735; 83880; 84466; 84484; 85025; 86850; 86900; 86901; 86922; 93005; 94640; 94760; 96365; 96374; 99284; A4216; A4222; P9016; G0378; J0696; J1940; J7050; J7613; J7620; J7626; J7644